=== PATIENT | male | born 1950 | race Hispanic/Latino ===

== ENCOUNTER → 2018-02-18 | Outpatient (CLI) | payer OTHER ==
[~2018-02-18] MED LIST: ACET-2123 PO; ASPI-1005 PO; ATOR40TA69 PO; BACL10TA PO; BISA5TAB52 PO; CALC-1174 PO; FLUT15.88 NS; HYDR-4064 PO; HYDR12.54 PO; ISOS60TA4 PO; LISI-613 PO; NORT50CA PO; OMEP40CA37 PO; SIME125C81 PO; TAMS0.4C32 PO; VIT1CAPS21 PO
== END | disposition home or self-care (01) ==
LOC: RAH 13:20
PROVIDERS: ATTEND Family Medicine
DX: K40.90 Unilateral inguinal hernia, without obstruction or gangrene, not specified as recurrent (principal)
CPT/HCPCS: 76870

== ENCOUNTER 2018-07-27 05:30 | Day surgery (SDC) | payer OTHER ==
[~2018-07-27] VITALS: Ht 177.8 cm; Wt 82.1 kg
[~2018-07-27 05:30] MED LIST changes: -ACET-2123 PO; -BISA5TAB52 PO; -ISOS60TA4 PO; +SACU1TAB4 PO; -SIME125C81 PO
[2018-07-27] MEDS ORDERED: SODIUM CHLORIDE 0.9% 1000ML 1,000 ML IV ONE (05:50)
[2018-07-27 05:57] VITALS: BP 147/67
[2018-07-27] MEDS ORDERED: LIDOCAINE HCL-MPF 2% 5ML VIAL ONE (06:36)
[2018-07-27] MEDS ORDERED: PROPOFOL 10 MG/ML 20ML VIAL IV ONE ×2 (06:36→06:56)
[2018-07-27] MEDS ORDERED: GLYCOPYRROLATE 0.2 MG/ML 5 ML VIAL ONE (06:57)
[2018-07-27 07:04] VITALS: BP 88/46
[2018-07-27 07:09] VITALS: BP 96/54
[2018-07-27 07:14] VITALS: BP 95/55
[2018-07-27 07:19] VITALS: BP 101/56
[2018-07-27 07:24] VITALS: BP 102/60
== END 2018-07-27 07:39 | disposition home or self-care (01) ==
LOC: DAH 05:30
PROVIDERS: ATTEND Internal Medicine Gastroenterology
DX: Z12.11 Encounter for screening for malignant neoplasm of colon (principal); K63.5 Polyp of colon; K57.30 Diverticulosis of large intestine without perforation or abscess without bleeding; K31.9 Disease of stomach and duodenum, unspecified; K29.50 Unspecified chronic gastritis without bleeding; K25.9 Gastric ulcer, unspecified as acute or chronic, without hemorrhage or perforation; K44.9 Diaphragmatic hernia without obstruction or gangrene; K22.8 Other specified diseases of esophagus; K29.51 Unspecified chronic gastritis with bleeding; K21.9 Gastro-esophageal reflux disease without esophagitis; F41.9 Anxiety disorder, unspecified; K76.0 Fatty (change of) liver, not elsewhere classified; I10 Essential (primary) hypertension; E78.5 Hyperlipidemia, unspecified; K31.84 Gastroparesis; K22.70 Barrett's esophagus without dysplasia; Z85.46 Personal history of malignant neoplasm of prostate; Z86.010 Personal history of colon polyps; Z90.49 Acquired absence of other specified parts of digestive tract; Z82.49 Family history of ischemic heart disease and other diseases of the circulatory system
CPT/HCPCS: 43239; 45380; 88305; 93005; A4606; J2704 ×2; J3490 ×2; J7030

== ENCOUNTER → 2018-10-05 | Outpatient (CLI) | payer OTHER ==
[~2018-10-05] MED LIST changes: -LISI-613 PO
== END | disposition home or self-care (01) ==
LOC: OIH 11:22
PROVIDERS: ATTEND Family Medicine
DX: M47.896 Other spondylosis, lumbar region (principal); M25.78 Osteophyte, vertebrae
CPT/HCPCS: 72100

== ENCOUNTER 2018-11-28 23:44 | Observation (INO) | payer OTHER ==
[~2018-11-28] VITALS: Ht 177.8 cm; Wt 82.9 kg
[2018-11-29] VITALS (12 sets, daily range): BP systolic 108–143; BP diastolic 53–85
[2018-11-29] MEDS ORDERED: ASPIRIN 325 MG TABLET ONE (00:26)
[2018-11-29 00:31] LABS: BASOPHILS % (AUTO) 0.7 % (0.0-5.0); EOSINOPHILS % (AUTO) 1.9 % (0.0-8.0); HEMATOCRIT 39.8 % (42-54); LYMPHOCYTES % (AUTO) 41.5 % (21.0-51.0); MEAN CORPUSCULAR HEMOGLOBIN 29.7 pg (27.0-33.0); MEAN CORPUSCULAR HGB CONC 33.6 g/dL (32.0-36.0); MEAN CORPUSCULAR VOLUME 88.4 fL (79-99); MONOCYTES % (AUTO) 8.8 % (3.0-13.0); NEUTROPHILS % (AUTO) 47.1 % (40.0-77.0); PLATELET COUNT (AUTO) 170 K/uL (130-400); RED BLOOD CELL COUNT(AUTO) 4.51 MIL/uL (4.50-6.20); RED CELL DISTRIBUTION WIDTH 14.1 % (11.0-15.5)
[2018-11-29 00:41] LABS: CREATININE 0.9 mg/dL (0.5-1.5); INR 1.02 (0.85-1.15); PARTIAL THROMBOPLASTIN TIME 28.7 SEC (26.3-35.5); POTASSIUM 3.8 mmol/L (3.5-5.1); PROTHROMBIN TIME 10.7 SEC (9.6-11.6)
[2018-11-29 00:54] LABS: ALBUMIN 3.8 g/dL (3.5-5.0); BILIRUBIN,TOTAL 0.4 mg/dL (0.2-1.0); TOTAL PROTEIN, SERUM 7.3 g/dL (6.0-8.3)
[2018-11-29 01:02] LABS: B-TYPE NATRIURETIC PEPTIDE 88 pg/mL (0-100)
[2018-11-29] MEDS ORDERED: SODIUM CHLORIDE 0.9% 1000ML 1,000 ML IV ONE (02:47)
[2018-11-29 02:58] LABS: BILIRUBIN,URINE Negative (NEGATIVE); COLOR,URINE Yellow (YELLOW); GLUCOSE, URINE (UA) Negative (NEGATIVE); KETONES,URINE Negative (NEGATIVE); LEUKOCYTE ESTERASE ,URINE Negative (NEGATIVE); NITRATE,URINE Negative (NEGATIVE); OCCULT BLOOD,URINE Negative (NEGATIVE); PH,URINE 7.5 (5.0-8.0); PROTEIN,URINE Negative (NEGATIVE)
[2018-11-29 03:02] LABS: APPEARANCE,URINE CLEAR (CLEAR)
[2018-11-29] MEDS ORDERED: SODIUM CHLORIDE 0.9% 1000ML 1,000 ML IV SCH (03:15)
[2018-11-29] MEDS ORDERED: NITROGLYCERIN 1GM/1 INCH PACKET TD ONE (03:36)
--- NOTE | 2018-11-29 04:30 | NUR ---
NEW ADMISSION 68 YEAR OLD MALE ADMITTED INTO ROOM 208. PT AAOX4, PLEASANT, COOPERATIVE, CURRENTLY DENIES ANY CHEST PAIN/PAIN OR S.O.B. PT ORIENTED TO ROOM, MEDICATION GUIDE GIVEN AND REVIEWED. SEE NURSING DATA BASE, PT ASSESSMENT FOR MORE INFORMATION. CALL GARIMA REVIEWED AND WITHIN REACH. JOSH SIDDIQI UP-DATE. SIGNIFICANT OTHER AT BEDSIDE.
[2018-11-29] MEDS ORDERED: SACU1TAB7 PO (04:46)
[2018-11-29] MEDS: NITROGLYCERIN 1GM/1 INCH PACKET TD SCH ×2 (06:12→13:12)
[2018-11-29 06:59] LABS: TROPONIN I 0.18 ng/mL (0.00-0.06)
--- NOTE | 2018-11-29 08:45 | NUR ---
Patient is resting in bed. Denies pain and SOB. Vitals as recorded. Bed Locked and Low, Call light in reach, Patient is able to demonstrate correct use of call light. Monitors on and alarms audible. Patient is NPO for test, Verbalized understanding. Lopressor held for low BP and HR 45-50. Will continue to monitor.
[2018-11-29] MEDS: REGADENOSON 0.4 MG/5 ML PF SYG IVP SCH ×2 (09:00→15:21)
[2018-11-29] MEDS: ASPIRIN 325 MG TABLET PO SCH (09:00)
[2018-11-29] MEDS: PANTOPRAZOLE SODIUM 40 MG TABLET.DR PO SCH (09:00)
[2018-11-29] MEDS ORDERED: METOPROLOL TARTRATE 25 MG TAB PO SCH (09:00)
[2018-11-29 12:57] LABS: TROPONIN I 0.1 ng/mL (0.00-0.06)
[2018-11-29] MEDS ORDERED: PHARMACY COMMUNICATION MISC SCH (17:45)
[2018-11-29] MEDS ORDERED: ATORVASTATIN CALCIUM 40 MG TABLET PO SCH (21:00)
[2018-11-29] MEDS: NAPROXEN 250 MG TAB PO SCH (21:27)
[2018-11-30 00:19] VITALS: BP 121/67
[2018-11-30 03:44] VITALS: BP 115/45
[2018-11-30 07:20] VITALS: BP 137/67
[2018-11-30] MEDS: ASPIRIN 325 MG TABLET PO SCH (08:56)
[2018-11-30] MEDS: PANTOPRAZOLE SODIUM 40 MG TABLET.DR PO SCH (08:56)
[2018-11-30] MEDS: NAPROXEN 250 MG TAB PO SCH (08:56)
[2018-11-30 11:15] VITALS: BP 141/70
[2018-11-30] MEDS ORDERED: PHARMACY COMMUNICATION MISC SCH (13:45)
[2018-11-30] MEDS ORDERED: GADODIAMIDE 10 MMOL/20 ML ML IV ONE (13:52)
[2018-11-30 16:08] VITALS: BP 131/69
[2018-11-30 17:00] VITALS: BP 138/69
--- NOTE | 2018-11-30 17:28 | NUR ---
prescription for atorvastatin and naproxen given to patient; copy made and placed in chart
== END 2018-11-30 18:25 | disposition home or self-care (01) ==
LOC: EDH 23:44 → EDHIP 11-29 02:35 → INTOOBSV 11-29 02:35 → 2BH 11-29 04:18
PROVIDERS: ADMIT Family Medicine; ATTEND Family Medicine
DX: R07.89 Other chest pain (principal); I25.5 Ischemic cardiomyopathy; E11.43 Type 2 diabetes mellitus with diabetic autonomic (poly)neuropathy; J44.9 Chronic obstructive pulmonary disease, unspecified; K22.70 Barrett's esophagus without dysplasia; K31.84 Gastroparesis; Z90.49 Acquired absence of other specified parts of digestive tract; E11.9 Type 2 diabetes mellitus without complications; E78.5 Hyperlipidemia, unspecified; I10 Essential (primary) hypertension; I25.10 Atherosclerotic heart disease of native coronary artery without angina pectoris; Z85.46 Personal history of malignant neoplasm of prostate; Z79.899 Other long term (current) drug therapy
CPT/HCPCS: 36415; 70553; 71046; 71250; 74150; 78452; 80053; 81003; 82550 ×3; 83690; 83874 ×2; 83880; 84484 ×3; 85025; 85610; 85730; 93005; 93017; 99284; A4600; A9500 ×2; A9579; G0378 ×40; J2785; J7030; 96374

== ENCOUNTER → 2020-04-20 | Outpatient (CLI) | payer OTHER ==
[~2020-04-20] MED LIST changes: -ATOR40TA69 PO; +FLUT15.845 NS; -FLUT15.88 NS; +OCUVITE SOFTGE1 EACH PO; +OMEP40CA13 PO; -OMEP40CA37 PO; -SACU1TAB4 PO; +SACU1TAB7 PO; -VIT1CAPS21 PO
== END | disposition home or self-care (01) ==
LOC: RAH 13:55
PROVIDERS: ATTEND Urology
DX: R31.29 Other microscopic hematuria (principal)
CPT/HCPCS: 76770

== ENCOUNTER 2020-08-24 19:47 | Emergency (ER) | payer OTHER ==
[2020-08-24 21:15] LABS: APPEARANCE,URINE Clear (CLEAR); BILIRUBIN,URINE Negative (NEGATIVE); COLOR,URINE Yellow (YELLOW); GLUCOSE, URINE (UA) Negative (NEGATIVE); KETONES,URINE Negative (NEGATIVE); LEUKOCYTE ESTERASE ,URINE Trace (NEGATIVE); NITRATE,URINE Negative (NEGATIVE); OCCULT BLOOD,URINE Large (NEGATIVE); PROTEIN,URINE Negative (NEGATIVE); UROBILINOGEN,URINE 0.2 mg/dL (0.2-1.0)
[2020-08-24 21:17] LABS: CREATININE 0.9 mg/dL (0.5-1.5); POTASSIUM 3.8 mmol/L (3.5-5.1)
[2020-08-24 21:21] LABS: ALBUMIN 3.8 g/dL (3.5-5.0); BILIRUBIN,TOTAL 0.3 mg/dL (0.2-1.0); INR 1.02 (0.85-1.15); PARTIAL THROMBOPLASTIN TIME 26.9 SEC (26.3-35.5); TOTAL PROTEIN, SERUM 7.8 g/dL (6.0-8.3)
[2020-08-24 21:36] LABS: BACTERIA,URINE Rare /HPF (None Seen); SQUAMOUS EPITHELIAL CELL,UR None Seen /HPF (0-2); WBC,URINE 0-1 /HPF (0-1)
[2020-08-24] MEDS ORDERED: IOHEXOL-350 75 ML VIAL IV ONE (21:52)
== END 2020-08-25 00:05 | disposition home or self-care (01) ==
LOC: EDH 19:47
DX: R31.0 Gross hematuria (principal); E78.5 Hyperlipidemia, unspecified; I10 Essential (primary) hypertension; M19.90 Unspecified osteoarthritis, unspecified site; Z88.6 Allergy status to analgesic agent
CPT/HCPCS: 36415; 74178; 80053; 81001; 85610; 85730; 99284; Q9967

== ENCOUNTER 2020-11-19 14:05 | Observation (INO) | payer OTHER ==
[~2020-11-19] VITALS: Ht 177.8 cm; Wt 88.0 kg
[~2020-11-19 14:05] MED LIST changes: +ASCO500T92 PO; +ATOR40TA69 PO; -CALC-1174 PO; +ESCI-8 PO; -FLUT15.845 NS; +FURO20TA4 PO; -HYDR-4064 PO; -HYDR12.54 PO; +METO10TA3 PO; -NORT50CA PO; -OCUVITE SOFTGE1 EACH PO; -OMEP40CA13 PO; +OMEP40CA21 PO; +TICA90TA PO; +TRAN650T5 PO
[2020-11-19 14:32] LABS: BASOPHILS % (AUTO) 0.6 % (0.0-5.0); HEMATOCRIT 39.8 % (42-54); LYMPHOCYTES % (AUTO) 19.1 % (21.0-51.0); MEAN CORPUSCULAR HEMOGLOBIN 28.4 pg (27.0-33.0); MEAN CORPUSCULAR HGB CONC 32.9 g/dL (32.0-36.0); MEAN CORPUSCULAR VOLUME 86.3 fL (79-99); MONOCYTES % (AUTO) 7.4 % (3.0-13.0); NEUTROPHILS % (AUTO) 71.8 % (40.0-77.0); PLATELET COUNT (AUTO) 157 K/uL (130-400); RED BLOOD CELL COUNT(AUTO) 4.61 MIL/uL (4.50-6.20); RED CELL DISTRIBUTION WIDTH 13.4 % (11.0-15.5); WHITE BLOOD COUNT (AUTO) 6.8 K/uL (4.8-10.8)
[2020-11-19 14:41] LABS: INR 1.07 (0.85-1.15); PROTHROMBIN TIME 11.4 SEC (9.6-11.6)
[2020-11-19 14:43] LABS: PARTIAL THROMBOPLASTIN TIME 26.5 SEC (26.3-35.5); POTASSIUM 3.7 mmol/L (3.5-5.1)
[2020-11-19 14:47] LABS: ALBUMIN 3.7 g/dL (3.5-5.0); BILIRUBIN,TOTAL 0.8 mg/dL (0.2-1.0); TOTAL PROTEIN, SERUM 7.4 g/dL (6.0-8.3)
[2020-11-19 14:57] LABS: B-TYPE NATRIURETIC PEPTIDE 884 pg/mL (0-100)
[2020-11-19] MEDS ORDERED: ACETAMINOPHEN 325 MG TAB PO PRN ×2 (18:45)
[2020-11-19] MEDS ORDERED: LIDOCAINE HCL-MPF 1% 2ML VIAL IV PRN (18:45)
[2020-11-19] MEDS ORDERED: POTASSIUM CHLORIDE 20MEQ/100ML 100 ML IV PRN (18:45)
[2020-11-19] MEDS ORDERED: ZOLPIDEM TARTRATE 5 MG TAB PO PRN (18:45)
[2020-11-19] MEDS ORDERED: HYDRALAZINE 20MG/ML VIAL IV PRN (18:45)
[2020-11-19] MEDS ORDERED: MAGNESIUM 2GM PREMIX 50ML 50 ML IV PRN (18:45)
[2020-11-19] MEDS ORDERED: ONDANSETRON 4MG INJ IV PRN (18:45)
[2020-11-19] MEDS ORDERED: DiphenhydrAMINE HCL 50 MG/ML VIAL IV PRN (18:45)
[2020-11-19] MEDS ORDERED: LACTULOSE 20 GM/30 ML UDCUP PO PRN (18:45)
[2020-11-19] MEDS ORDERED: NITROGLYCERIN 0.4 MG SL TAB SL PRN (18:45)
[2020-11-19] MEDS ORDERED: MAG/ALUM/SIMETH 30 ML UDCUP PO PRN (18:45)
[2020-11-19] MEDS ORDERED: MORPHINE 4 MG SYG IV PRN (18:45)
[2020-11-19] MEDS ORDERED: POTASSIUM CHLORIDE 10% ELIXIR 20 MEQ/15 ML UDCUP PO PRN (18:45)
[2020-11-19] MEDS ORDERED: DIPHENHYDRAMINE HCL 25 MG CAPSULE PO PRN (18:45)
[2020-11-19] MEDS ORDERED: GUAIFENESIN-DM 200/20 MG 10 ML PO PRN (18:45)
[2020-11-19] MEDS ORDERED: ACETAMINOPHEN WITH CODEINE 1 TAB TAB PO PRN (18:45)
[2020-11-19 19:52] LABS: TROPONIN I 0.2 ng/mL (0.00-0.06)
[2020-11-19] MEDS ORDERED: ATORVASTATIN 40 MG TABLET ONE (20:30)
[2020-11-19] MEDS ORDERED: FAMOTIDINE 20MG TAB ONE (20:30)
[2020-11-19] MEDS ORDERED: ATORVASTATIN 40 MG TABLET PO SCH (21:00)
[2020-11-19] MEDS ORDERED: ENOXAPARIN SODIUM 80 MG/0.8 ML SQ SCH (21:00)
[2020-11-19] MEDS ORDERED: LACTULOSE 20 GM/30 ML UDCUP ONE (21:33)
[2020-11-20 01:53] LABS: TROPONIN I 0.29 ng/mL (0.00-0.06)
[2020-11-20] MEDS ORDERED: CLONIDINE HCL 0.1 MG TABLET ONE (02:02)
[2020-11-20 06:10] LABS: BASOPHILS % (AUTO) 0.4 % (0.0-5.0); EOSINOPHILS % (AUTO) 0.7 % (0.0-8.0); HEMATOCRIT 38.6 % (42-54); LYMPHOCYTES % (AUTO) 17.7 % (21.0-51.0); MEAN CORPUSCULAR HEMOGLOBIN 27.8 pg (27.0-33.0); MEAN CORPUSCULAR HGB CONC 31.9 g/dL (32.0-36.0); MEAN CORPUSCULAR VOLUME 87.1 fL (79-99); MONOCYTES % (AUTO) 5.4 % (3.0-13.0); NEUTROPHILS % (AUTO) 75.6 % (40.0-77.0); PLATELET COUNT (AUTO) 142 K/uL (130-400); RED BLOOD CELL COUNT(AUTO) 4.43 MIL/uL (4.50-6.20); RED CELL DISTRIBUTION WIDTH 13.4 % (11.0-15.5); WHITE BLOOD COUNT (AUTO) 8.3 K/uL (4.8-10.8)
[2020-11-20 06:41] LABS: B-TYPE NATRIURETIC PEPTIDE 1160 pg/mL (0-100)
[2020-11-20 06:51] LABS: ALBUMIN 3.3 g/dL (3.5-5.0); BILIRUBIN,TOTAL 0.9 mg/dL (0.2-1.0); CREATININE 0.9 mg/dL (0.5-1.5); MAGNESIUM 1.9 mg/dL (1.80-2.40); POTASSIUM 3.5 mmol/L (3.5-5.1); THYROID STIMULATING HORMONE 3.52 uIU/mL (0.36-3.74); TOTAL PROTEIN, SERUM 6.7 g/dL (6.0-8.3)
[2020-11-20 07:03] LABS: TROPONIN I 0.25 ng/mL (0.00-0.06)
[2020-11-20] MEDS ORDERED: ENOXAPARIN SODIUM 80 MG/0.8 ML SQ ONE ×2 (08:55→19:32)
[2020-11-20] MEDS ORDERED: FAMOTIDINE 20MG TAB ONE ×2 (08:56→19:31)
[2020-11-20] MEDS ORDERED: FUROSEMIDE 40 MG TABLET ONE (08:56)
[2020-11-20] MEDS ORDERED: ASPIRIN 81MG CHEW TAB ONE (08:56)
[2020-11-20] MEDS ORDERED: TAMSULOSIN HCL 0.4 MG CAP.ER.24H ONE (08:57)
[2020-11-20] MEDS ORDERED: PANTOPRAZOLE 40 MG TAB DR ONE (08:57)
[2020-11-20] MEDS ORDERED: ASPIRIN 81MG CHEW TAB PO SCH (09:00)
[2020-11-20] MEDS ORDERED: TAMSULOSIN HCL 0.4 MG CAP.ER.24H PO SCH (09:00)
[2020-11-20] MEDS ORDERED: FUROSEMIDE 40 MG TABLET PO SCH (09:00)
[2020-11-20] MEDS ORDERED: CITALOPRAM 20 MG TABLET PO SCH (09:00)
[2020-11-20] MEDS ORDERED: PANTOPRAZOLE 40 MG TAB DR PO SCH (09:00)
[2020-11-20] MEDS ORDERED: ATORVASTATIN 40 MG TABLET ONE (19:32)
[2020-11-20] MEDS ORDERED: LACTULOSE 20 GM/30 ML UDCUP ONE (21:49)
[2020-11-20] MEDS ORDERED: ZOLPIDEM TARTRATE 5 MG TAB ONE (21:52)
[2020-11-20] MEDS ORDERED: PHARMACY COMMUNICATION MISC SCH (22:15)
[2020-11-20 23:10] VITALS: BP 134/94
[2020-11-20] MEDS ORDERED: FUROSEMIDE 20MG VIAL IV SCH (23:45)
[2020-11-21 03:55] VITALS: BP 131/75
[2020-11-21 04:08] LABS: POTASSIUM 3.4 mmol/L (3.5-5.1)
[2020-11-21] MEDS: INSULIN HUMULIN R 100 UNIT/ML 3ML SQ SCH ×3 (05:36→16:07)
[2020-11-21] MEDS: METOCLOPRAMIDE 10 MG TABLET PO SCH ×2 (07:31→16:30)
[2020-11-21 07:39] VITALS: BP 119/73
[2020-11-21] MEDS: FAMOTIDINE 20MG TAB PO SCH ×2 (08:18→20:00)
[2020-11-21] MEDS: BACLOFEN 10 MG TABLET PO SCH ×2 (08:35→16:47)
[2020-11-21] MEDS: KCL 20 MEQ ERTAB PO PRN ×2 (08:35→11:59)
[2020-11-21] MEDS: ENTRESTO PO SCH ×2 (08:39→20:06)
[2020-11-21] MEDS ORDERED: TICAGRELOR 90 MG TABLET PO SCH (09:00)
[2020-11-21] MEDS ORDERED: ASCORBIC ACID 500 MG TAB PO SCH (09:00)
[2020-11-21] MEDS ORDERED: POLYETHYLENE GLYCOL 3350 17 GM POWD.PACK PO SCH (09:00)
[2020-11-21] MEDS ORDERED: FUROSEMIDE 20 MG TABLET PO SCH (09:00)
[2020-11-21 11:54] VITALS: BP 120/74
[2020-11-21 16:04] VITALS: BP 120/77
[2020-11-21] MEDS ORDERED: METOCLOPRAMIDE 5 MG TABLET ONE (16:44)
[2020-11-21] MEDS ORDERED: FURO20TA6 PO (18:34)
[2020-11-21] MEDS ORDERED: POLY17PO4 PO (18:34)
[2020-11-21 19:25] VITALS: BP 114/57
[2020-11-22] MEDS ORDERED: TRANEXAMIC ACID 650 MG PO SCH (09:00)
== END 2020-11-21 21:30 | disposition home or self-care (01) ==
LOC: EDH 14:05 → EDHIP 18:41 → 4DH 11-20 23:10
PROVIDERS: ADMIT Internal Medicine Pulmonary Disease; ATTEND Internal Medicine Pulmonary Disease
DX: R07.89 Other chest pain (principal); Z20.828 Contact with and (suspected) exposure to other viral communicable diseases; I11.0 Hypertensive heart disease with heart failure; I50.43 Acute on chronic combined systolic (congestive) and diastolic (congestive) heart failure; I25.10 Atherosclerotic heart disease of native coronary artery without angina pectoris; I25.5 Ischemic cardiomyopathy; E78.5 Hyperlipidemia, unspecified; K31.84 Gastroparesis; K22.70 Barrett's esophagus without dysplasia; I73.9 Peripheral vascular disease, unspecified; M60.9 Myositis, unspecified; R00.1 Bradycardia, unspecified; M19.90 Unspecified osteoarthritis, unspecified site; K59.00 Constipation, unspecified; R79.89 Other specified abnormal findings of blood chemistry; R10.13 Epigastric pain; Z85.46 Personal history of malignant neoplasm of prostate; Z95.5 Presence of coronary angioplasty implant and graft; Z90.49 Acquired absence of other specified parts of digestive tract; Z92.3 Personal history of irradiation; Z79.82 Long term (current) use of aspirin; Z79.899 Other long term (current) drug therapy; Z88.6 Allergy status to analgesic agent
CPT/HCPCS: 36415 ×3; 71045 ×3; 74018; 80048; 80053 ×2; 80061; 82550 ×4; 82948 ×6; 83036; 83690; 83735; 83874 ×3; 83880 ×3; 84439; 84443; 84484 ×4; 85025 ×2; 85378 ×2; 85610; 85730; 87426; 93005 ×3; 93306; 93356; 96372; 99285; G0378 ×49; J1650 ×3; U0003

== ENCOUNTER 2023-12-11 10:58 | Observation (INO) | payer OTHER ==
[~2023-12-11] VITALS: Ht 182.9 cm; Wt 76.4 kg
[~2023-12-11 10:58] MED LIST changes: +FURO20TA6 PO; +POLY17PO4 PO
[2023-12-11 11:58] LABS: BASOPHILS # (AUTO) 0.05 K/uL (0.00-0.20); BASOPHILS % (AUTO) 0.7 % (0.0-5.0); EOSINOPHILS # (AUTO) 0.06 K/uL (0.00-0.70); EOSINOPHILS % (AUTO) 0.8 % (0.0-8.0); HEMATOCRIT 42.5 % (42-54); IMMATURE GRANULOCYTE ABSOLUTE 0.02 K/uL (0-1); LYMPHOCYTES # (AUTO) 1.3 K/uL (1.0-4.8); LYMPHOCYTES % (AUTO) 17.1 % (21.0-51.0); MEAN CORPUSCULAR HEMOGLOBIN 28.6 pg (27.0-33.0); MEAN CORPUSCULAR HGB CONC 33.6 g/dL (32.0-36.0); MONOCYTES # (AUTO) 0.7 K/uL (0.1-1.0); NEUTROPHILS # (AUTO) 5.3 K/uL (1.8-7.7); NEUTROPHILS % (AUTO) 72.1 % (40.0-77.0); PLATELET COUNT (AUTO) 191 K/uL (130-400); RED CELL DISTRIBUTION WIDTH 14.3 % (11.0-15.5); WHITE BLOOD COUNT (AUTO) 7.3 K/uL (4.8-10.8)
[2023-12-11] MEDS: 0.9%NACL 1000ML 2,328 ML IV ONE (12:12)
[2023-12-11 12:31] LABS: CREATININE 1.4 mg/dL (0.5-1.5); POTASSIUM 3.8 mmol/L (3.5-5.1); THYROID STIMULATING HORMONE 4.85 uIU/mL (0.36-3.74)
[2023-12-11] MEDS ORDERED: LEVO25TA9 PO (14:55)
[2023-12-11] MEDS ORDERED: ONDANSETRON 4MG INJ IVP PRN (15:30)
[2023-12-11] MEDS ORDERED: CLONIDINE HCL 0.1 MG TABLET PO PRN (15:30)
[2023-12-11] MEDS ORDERED: LACTULOSE 20 GM/30 ML UDCUP PO PRN (15:30)
[2023-12-11] MEDS ORDERED: TEMAZEPAM 15 MG CAPSULE PO PRN (15:30)
[2023-12-11] MEDS ORDERED: ACETAMINOPHEN 325 MG TAB PO PRN (15:30)
[2023-12-11] MEDS ORDERED: ACETAMINOPHEN 650 MG SUPPOSITORY RC PRN (15:30)
[2023-12-11] MEDS ORDERED: HYDRALAZINE 20MG/ML VIAL IV PRN (15:30)
[2023-12-11] MEDS: ZOSYN 3.375GM +NS 50ML IV SCH (15:38)
[2023-12-11] MEDS: LACTATED RINGERS 1000ML 1,000 ML IV SCH (15:39)
[2023-12-11] MEDS: MIDODRINE HCL 5 MG TABLET PO ONE (15:39)
[2023-12-11] MEDS: 0.9%NACL 1000ML 1,000 ML IV ONE (15:40)
[2023-12-11 16:00] LABS: APPEARANCE,URINE CLEAR (CLEAR); BILIRUBIN,URINE NEGATIVE (NEGATIVE); COLOR,URINE COLORLESS (YELLOW); GLUCOSE, URINE (UA) 200 mg/dL (NEGATIVE); KETONES,URINE NEGATIVE (NEGATIVE); LEUKOCYTE ESTERASE ,URINE NEGATIVE Leu/uL (NEGATIVE); NITRATE,URINE NEGATIVE (NEGATIVE); OCCULT BLOOD,URINE NEGATIVE (NEGATIVE); PROTEIN,URINE NEGATIVE (NEGATIVE); UROBILINOGEN,URINE 0.2 mg/dL (0.2-1.0)
[2023-12-11 16:01] LABS: ADD UA MICROSCOPIC YES
[2023-12-11 16:06] LABS: MUCUS,URINE RARE LPF (None Seen); RBC,URINE 0-1 /HPF (0-1); SQUAMOUS EPITHELIAL CELL,UR RARE /HPF (0-2); WBC,URINE 0-1 /HPF (0-1)
[2023-12-11 17:35] VITALS: BP 131/74; PULSE 76; RESP 20
[2023-12-11] MEDS ORDERED: BISACODYL 10 MG SUPP.RECT RC PRN (18:00)
[2023-12-11] MEDS: BISACODYL 10 MG SUPP.RECT RC SCH (18:00)
[2023-12-11 20:00] VITALS: BP 106/73; PULSE 55; RESP 18
[2023-12-11] MEDS ORDERED: COLE1TAB2 PO (20:00)
[2023-12-11] MEDS ORDERED: APIX5TAB PO (20:00)
[2023-12-11] MEDS ORDERED: METO-408 PO (20:00)
[2023-12-11] MEDS ORDERED: EZET10TA48 PO (20:00)
[2023-12-11] MEDS ORDERED: LOSA1TAB37 PO (20:00)
[2023-12-11] MEDS ORDERED: DAPA10TA PO (20:00)
[2023-12-11] MEDS ORDERED: OMEP40CA21 PO (20:00)
[2023-12-11] MEDS ORDERED: TAMS-1 PO (20:00)
[2023-12-11] MEDS ORDERED: TORS20TA4 PO (20:00)
[2023-12-11] MEDS ORDERED: VITA-300 PO (20:00)
[2023-12-11 20:01] LABS: SARS-CoV-2, RNA, NAAT NEGATIVE SARS CoV-2 (NEGATIVE)
[2023-12-11 20:03] VITALS: BP 117/72; PULSE 66; RESP 20
[2023-12-11 20:05] LABS: INFLUENZA TYPE A Negative For Type A (NEGATIVE); INFLUENZA TYPE B Negative For Type B (NEGATIVE)
[2023-12-11] MEDS: MIDODRINE HCL 5 MG TABLET PO SCH (20:05)
[2023-12-11 20:09] VITALS: BP 116/64; PULSE 55; RESP 20
[2023-12-12] VITALS: BP 117/67; PULSE 69; RESP 20
[2023-12-12 04:00] VITALS: BP 118/62; PULSE 68; RESP 18
[2023-12-12 04:08] LABS: BASOPHILS # (AUTO) 0.03 K/uL (0.00-0.20); BASOPHILS % (AUTO) 0.4 % (0.0-5.0); EOSINOPHILS # (AUTO) 0.14 K/uL (0.00-0.70); HEMATOCRIT 41.7 % (42-54); IMMATURE GRANULOCYTE ABSOLUTE 0.02 K/uL (0-1); LYMPHOCYTES # (AUTO) 1.4 K/uL (1.0-4.8); LYMPHOCYTES % (AUTO) 20.7 % (21.0-51.0); MEAN CORPUSCULAR HEMOGLOBIN 27.7 pg (27.0-33.0); MEAN CORPUSCULAR HGB CONC 32.9 g/dL (32.0-36.0); MEAN CORPUSCULAR VOLUME 84.2 fL (79-99); MONOCYTES # (AUTO) 0.7 K/uL (0.1-1.0); MONOCYTES % (AUTO) 9.4 % (3.0-13.0); NEUTROPHILS # (AUTO) 4.7 K/uL (1.8-7.7); NEUTROPHILS % (AUTO) 67.2 % (40.0-77.0); PLATELET COUNT (AUTO) 183 K/uL (130-400); RED BLOOD CELL COUNT(AUTO) 4.95 MIL/uL (4.50-6.20); RED CELL DISTRIBUTION WIDTH 14.5 % (11.0-15.5)
[2023-12-12 04:25] LABS: CREATININE 1.3 mg/dL (0.5-1.5); MAGNESIUM 1.9 mg/dL (1.80-2.40); PHOSPHORUS 4.3 mg/dL (2.5-4.9)
[2023-12-12 08:00] VITALS: BP_SYST 125; BP_SYST 128; BP_SYST 133; BP_DIAS 90; BP_DIAS 92; BP_DIAS 94; PULSE 62; PULSE 69; PULSE 74; RESP 16; RESP 18; O2SAT 97
[2023-12-12] MEDS ORDERED: MIDODRINE HCL 5 MG TABLET PO SCH (09:00)
[2023-12-12] MEDS: ENOXAPARIN SODIUM 40 MG/0.4 ML SYRINGE SQ SCH (09:00)
[2023-12-12] MEDS: POLYETHYLENE GLYCOL 3350 17 GM POWD.PACK PO SCH (09:00)
[2023-12-12] MEDS: ASCORBIC ACID 500 MG TAB PO SCH (09:09)
[2023-12-12] MEDS: FOLIC ACID 1 MG TABLET PO SCH (09:09)
[2023-12-12 12:00] VITALS: BP 127/73; PULSE 69; RESP 16
[2023-12-12 16:00] VITALS: BP 138/80; PULSE 74; RESP 18
== END 2023-12-12 19:45 | disposition home or self-care (01) ==
LOC: EDH 10:58 → EDHIP 15:13 → 4CH 17:02
PROVIDERS: ADMIT Internal Medicine; ATTEND Internal Medicine
DX: R10.9 Unspecified abdominal pain (principal); Z20.822 Contact with and (suspected) exposure to COVID-19; I95.9 Hypotension, unspecified; K59.00 Constipation, unspecified; I11.0 Hypertensive heart disease with heart failure; I50.9 Heart failure, unspecified; I25.10 Atherosclerotic heart disease of native coronary artery without angina pectoris; E78.5 Hyperlipidemia, unspecified; E11.51 Type 2 diabetes mellitus with diabetic peripheral angiopathy without gangrene; E86.0 Dehydration; E03.9 Hypothyroidism, unspecified; I45.10 Unspecified right bundle-branch block; I48.91 Unspecified atrial fibrillation; Z79.01 Long term (current) use of anticoagulants; Z79.899 Other long term (current) drug therapy; Z95.810 Presence of automatic (implantable) cardiac defibrillator; Z95.5 Presence of coronary angioplasty implant and graft; Z95.820 Peripheral vascular angioplasty status with implants and grafts
CPT/HCPCS: 96361; 96365; 96366 ×2; 99285; 84443; 83735 ×2; 84484 ×3; 80048 ×2; 85025 ×2; 87804 ×2; 82948 ×4; 83605; 81001; 36415 ×2; 87635; 74018 ×2; 74176; 93005 ×2; 71045; 84100; 85378; 78582; 84145; G0378 ×28; J7120; J2543 ×4; A9540; A9558; J1650